=== PATIENT | male | born 2000 | race Caucasian/White ===

== ENCOUNTER 2023-05-03 20:24 | Emergency (ER) | payer BC ==
[~2023-05-03] VITALS: Ht 170.1 cm; Wt 61.2 kg
[~2023-05-03 20:24] MED LIST: CONCERTA27 MG PO; MOTRIN400 MG PO; PEPCID20 MG PO
[2023-05-03 21:10] VITALS: BP 93/73
[2023-05-04] MEDS ORDERED: AMOX-CLAV 875-1 EACH PO (00:13)
[2023-05-04] MEDS ORDERED: VIBRAMYCIN100 MG PO (00:13)
== END 2023-05-04 00:33 | disposition home or self-care (01) ==
LOC: ED 20:24
DX: L02.413 Cutaneous abscess of right upper limb (principal); L03.113 Cellulitis of right upper limb